=== PATIENT | male | born 1950 | race Caucasian/White ===

== ENCOUNTER 2021-01-07 18:59 | Emergency (ER) | payer MEDICARE, OTHER ==
[~2021-01-07] VITALS: Ht 170.2 cm; Wt 81.6 kg
--- NOTE | 2021-01-07 20:54 | NUR ---
PRODUCTION MATERIAL HANDLER AT PT'S BEDSIDE
--- NOTE | 2021-01-07 21:02 | NUR ---
URINE SPECIMEN COLLECTED AND SENT TO LAB.
--- NOTE | 2021-01-07 21:24 | NUR ---
CALL FROM LAB. RAPID COVID POSITIVE.
[2021-01-07] MEDS ORDERED: AZIT250T13 PO (21:29)
[2021-01-07] MEDS ORDERED: ACET-2605 PO (21:29)
[2021-01-07] MEDS ORDERED: DEXAMETHASONE SOD PHOSPHATE 4 MG/ML VIAL IM ONE (21:30)
[2021-01-07] MEDS ORDERED: DEXAMETHASONE SOD PHOSPHATE 10 MG/ML VIAL ONE (21:32)
[2021-01-07 21:47] VITALS: BP 135/89
--- NOTE | 2021-01-07 21:47 | NUR ---
Patient discharged to home in stable condition. RX, Written and verbal after care instructions given. Patient verbalizes understanding of instruction. PT ambulatory with a steady gait.
== END 2021-01-07 21:48 | disposition home or self-care (01) ==
LOC: ER 19:06
DX: U07.1 COVID-19 (principal); J12.82 Pneumonia due to coronavirus disease 2019; I10 Essential (primary) hypertension
CPT/HCPCS: 71045; 87426; 96372; 99284; J1100; C9803